=== PATIENT | female | born 1995 | race Caucasian/White ===

== ENCOUNTER 2019-05-21 22:36 | Emergency (ER) | payer OTHER ==
[~2019-05-21] VITALS: Ht 157.5 cm; Wt 90.9 kg
[2019-05-21 22:36] VITALS: BP 147/89
[2019-05-21] MEDS ORDERED: OFLOSO OTIC (23:04)
[2019-05-21] MEDS ORDERED: PSEU30TA85 PO (23:06)
[2019-05-21] MEDS ORDERED: FLON1SPR NARES (23:06)
[2019-05-21] MEDS ORDERED: MUCI30TA5 PO (23:06)
[2019-05-21] MEDS ORDERED: AMOX500C PO (23:23)
[2019-05-21] MEDS ORDERED: AMOXICILLIN 500 MG CAP PO ONE (23:30)
== END 2019-05-21 23:35 | disposition home or self-care (01) ==
LOC: M ED 22:36
DX: J02.0 Streptococcal pharyngitis (principal); H60.93 Unspecified otitis externa, bilateral; Z79.3 Long term (current) use of hormonal contraceptives